=== PATIENT | female | born 1980 | race Caucasian/White ===

== ENCOUNTER 2016-08-24 11:16 | Emergency (ER) | payer OTHER ==
[~2016-08-24] VITALS: Ht 172.7 cm; Wt 104.3 kg
--- NOTE | 2016-08-24 12:24 | RAD ---
Indication cough. Congestion. Shortness of breath. PA and lateral views of the chest were obtained. No prior imaging of the chest is available. The heart and pulmonary vessels appear normal. The lungs are clear. There is no pleural fluid or pneumothorax. Bony structures appear unremarkable. IMPRESSION: No acute or focal process seen in the chest
[2016-08-24 12:50] LABS: BASO % 0 % (0-3); EOS # 0.1 x10^3/uL (0.0-0.7); EOS % 2 % (0-3); HEMATOCRIT 41.1 % (36.0-47.0); HEMOGLOBIN 14.2 g/dL (12.0-15.5); LYMPH # 0.6 x10^3/uL (1.0-4.8); LYMPH % 9 % (24-48); MEAN CORPUSCULAR HEMOGLOBIN 31 pg (25-35); MEAN CORPUSCULAR HGB CONC 35 g/dL (31-37); MEAN CORPUSCULAR VOLUME 89 fL (79-100); MONO # 0.2 x10^3/uL (0.0-1.1); MONO % 4 % (0-9); NEUT # 5.4 x10^3uL (1.8-7.7); NEUT % 84 % (31-73); PLATELET COUNT 177 x10^3/uL (140-400); RED BLOOD COUNT 4.62 x10^6/uL (3.50-5.40); RED CELL DISTRIBUTION WIDTH 13.3 % (11.5-14.5); WHITE BLOOD COUNT 6.4 x10^3/uL (4.0-11.0)
[2016-08-24 12:53] LABS: CALCIUM 8.6 mg/dL (8.5-10.1); CREATININE 0.9 mg/dL (0.6-1.0); GFR 70.8; POTASSIUM 4.1 mmol/L (3.5-5.1)
--- NOTE | 2016-08-24 13:03 | PHYS DOC ---
Past History Past Medical History: No Pertinent History Past Surgical History: Tonsillectomy, Other Alcohol Use: None Drug Use: None Adult General Chief Complaint Chief Complaint: SHORTNESS OF BREATH HPI HPI This 35-year-old lady presents with a history of cough and shortness of breath. He had a sinus procedure performed over weeks ago and had a severe sinus infection for which she was on Augmentin. About 6 days ago she called her ear nose and throat doctor because she wasn't getting much better and was having this cough and was told to go to the urgent care or ER. She went to the urgent care center negative chest x-ray and said she had pneumonia and change her to Levaquin. She presents now because she continues to have the cough that she states she had a fever yesterday. She presents now for evaluation Review of Systems Review of Systems ConstitutionalShe states she had a fever yesterday [] Eyes: Denies change in visual acuity, redness, or eye pain [] HENT: Denies or sore throat see history of present illness she's had a recent sinus infection Respiratory: She has had a persistent cough and dyspnea Cardiovascular: No additional information not addressed in HPI [] GI: Denies abdominal pain, nausea, vomiting, bloody stools or diarrhea [] : Denies dysuria or hematuria [] Musculoskeletal: Denies back pain or joint pain [] Integument: Denies rash or skin lesions [] Neurologic: Denies headache, focal weakness or sensory changes [] Endocrine: Denies polyuria or polydipsia [] Allergies Allergies Allergies Coded Allergies Type Severity Reaction Last Updated Verified Penicillins Allergy Unknown 08/24/16 Yes Physical Exam Physical Exam Constitutional: Well developed, well nourished, no acute distress, non-toxic appearance. [] HENT: Normocephalic, atraumatic, bilateral external ears normal, oropharynx moist, no oral exudates, nose normal. [] Eyes: PERRLA, EOMI, conjunctiva normal, no discharge. [] Neck: Normal range of motion, no tenderness, supple, no stridor. [] Cardiovascular:Heart rate regular rhythm, no murmur [] Lungs & Thorax: Bilateral breath sounds clear to auscultation [] Abdomen: Bowel sounds normal, soft, no tenderness, no masses, no pulsatile masses. [] Skin: Warm, dry, no erythema, no rash. [] Back: No tenderness, no CVA tenderness. [] Extremities: No tenderness, no cyanosis, no clubbing, ROM intact, no edema. [] Neurologic: Alert and oriented X 3, normal motor function, normal sensory function, no focal deficits noted. [] Psychologic: Affect normal, judgement normal, mood normal. [] Current Patient Data Vital Signs Vital Signs Date Time Temp Pulse Resp B/P (MAP) Pulse Ox O2 Delivery O2 Flow Rate FiO2 08/24/16 11:35 98.3 93 18 97 Room Air Lab Results Laboratory Tests Test 08/24/16 12:33 White Blood Count 6.4 x10^3/uL (4.0-11.0) Red Blood Count 4.62 x10^6/uL (3.50-5.40) Hemoglobin 14.2 g/dL (12.0-15.5) Hematocrit 41.1 % (36.0-47.0) Mean Corpuscular Volume 89 fL (79-100) Mean Corpuscular Hemoglobin 31 pg (25-35) Mean Corpuscular Hemoglobin Concent 35 g/dL (31-37) Red Cell Distribution Width 13.3 % (11.5-14.5) Platelet Count 177 x10^3/uL (140-400) Neutrophils (%) (Auto) 84 % (31-73) H Lymphocytes (%) (Auto) 9 % (24-48) L Monocytes (%) (Auto) 4 % (0-9) Eosinophils (%) (Auto) 2 % (0-3) Basophils (%) (Auto) 0 % (0-3) Neutrophils # (Auto) 5.4 x10^3uL (1.8-7.7) Lymphocytes # (Auto) 0.6 x10^3/uL (1.0-4.8) L Monocytes # (Auto) 0.2 x10^3/uL (0.0-1.1) Eosinophils # (Auto) 0.1 x10^3/uL (0.0-0.7) Basophils # (Auto) 0.0 x10^3/uL (0.0-0.2) EKG EKG [] Radiology/Procedures Radiology/Procedures Chest x-ray is negative for any infiltrates [] All laboratory values were reviewed and are totally normal Impressions: Bronchitis Course & Med Decision Making Course & Med Decision Making Pertinent Labs and Imaging studies reviewed. (See chart for details) The patient was instructed to continue on her present medications and a prescription for nebulized albuterol was given to the patient [] Dragon Disclaimer Dragon Disclaimer This chart was dictated in whole or in part using Voice Recognition software in a busy, high-work load, and often noisy Emergency Department environment. It may contain unintended and wholly unrecognized errors or omissions. Departure Departure: Referrals: DONTAE WHEATLEY DO (PCP) HOLLI ROSS MD August 24, 2016 13:03
[2016-08-24] MEDS ORDERED: ALBU2.5V14 NEB (13:11)
[2016-08-24 13:18] VITALS: BP 120/88
== END 2016-08-24 13:19 | disposition home or self-care (01) ==
LOC: ER 11:16
DX: J40 Bronchitis, not specified as acute or chronic (principal); Z88.0 Allergy status to penicillin
CPT/HCPCS: 36415; 71020; 80048; 85027; 99285-25

== ENCOUNTER 2020-03-01 16:22 | Emergency (ER) | payer OTHER ==
[~2020-03-01] VITALS: Ht 172.7 cm; Wt 109.0 kg
[~2020-03-01 16:22] MED LIST: ALBU2.5V14 NEB
[2020-03-01 16:25] VITALS: BP 137/78
[2020-03-01] MEDS ORDERED: HYDROcodone/APAP 5/325MG 1 TAB TABLET PO ONE (16:45)
[2020-03-01] MEDS ORDERED: IBUPROFEN 600 MG TABLET. PO ONE (16:45)
[2020-03-01] MEDS ORDERED: HYDR-3165 PO (17:07)
--- NOTE | 2020-03-01 17:07 | PHYS DOC ---
Past History Past Medical History: Other Additional Past Medical Histor: allergies Past Surgical History: No Surgical History Alcohol Use: None Drug Use: None General Adult EDM: Chief Complaint: ANKLE PROBLEM HPI: HPI: History obtained from patient. Patient is a 39-year-old female presents with chief complaint of right ankle pain status post injury. States yesterday evening around 10 PM she was stepping down off of the sidewalk. She did not notice the curb and describes an inversion ankle injury. She notes pain to the distal aspect of her right fibula. She also notes pain over the right lateral malleolus. Notes mild swelling. States it is somewhat difficult to ambulate due to pain. Has tried ibuprofen and Tylenol with some relief. Denies knee pain. Did not fall or strike her head. No other complaints. Review of Systems: Review of Systems: Constitutional: Denies fever or chills Eyes: Denies change in visual acuity HENT: Denies nasal congestion or sore throat Respiratory: Denies cough or shortness of breath Cardiovascular: Denies chest pain or edema GI: Denies abdominal pain, nausea, vomiting, bloody stools or diarrhea : Denies dysuria Musculoskeletal: Positive for ankle pain Integument: Denies rash Neurologic: Denies headache, focal weakness or sensory changes Endocrine: Denies polyuria or polydipsia Lymphatic: Denies swollen glands Psychiatric: Denies depression or anxiety Current Medications: Current Meds: Current Medications Medications (Trade) Dose Ordered Sig/Heriberto Start Time Stop Time Status Last Admin Dose Admin Acetaminophen/ Hydrocodone Bitart (Lortab 5/325) 1 tab 1X ONCE 03/01/20 16:45 03/01/20 16:46 DC 03/01/20 16:54 1 TAB Ibuprofen (Motrin) 600 mg 1X ONCE 03/01/20 16:45 03/01/20 16:46 DC 03/01/20 16:54 600 MG Allergies: Allergies: Allergies Coded Allergies Type Severity Reaction Last Updated Verified Penicillins Allergy Unknown 03/01/20 Yes Physical Exam: PE: Constitutional: Well developed, well nourished, no acute distress, non-toxic appearance. [] HENT: Normocephalic, atraumatic, bilateral external ears normal, oropharynx moist, no oral exudates, nose normal. [] Eyes: PERRLA, EOMI, conjunctiva normal, no discharge. [] Neck: Normal range of motion, no tenderness, supple, no stridor. [] Cardiovascular:Heart rate regular rhythm, no murmur [] Lungs & Thorax: Bilateral breath sounds clear to auscultation [] Abdomen: soft, no tenderness, no masses, no pulsatile masses. [] Skin: Warm, dry, no erythema, no rash. [] Back: No tenderness, no CVA tenderness. [] Extremities: R KNEE/ANKLE/FOOT: Focal tenderness to palpation at the lateral malleolus. Tissue compartments are soft. Distal pulses are 2+. Knee extension is intact. Plantar flexion is intact. Proximal fibula is not tender to palpation. Medial malleolus is not tender to palpation. Lateral malleolus is not tender to palpation. 5th metatarsal head is not tender to palpation. There is no obvious deformity. Passive ROM is reduced due to pain. Active ROM is reduced due to pain. Neurologic: Alert and oriented X 3, normal motor function, normal sensory function, no focal deficits noted. [] Psychologic: Affect normal, judgement normal, mood normal. [] Current Patient Data: Vital Signs: Vital Signs Date Time Temp Pulse Resp B/P (MAP) Pulse Ox O2 Delivery O2 Flow Rate FiO2 03/01/20 16:54 16 03/01/20 16:25 98.1 82 137/78 (97) 96 Nasal Cannula EKG: EKG: [] Radiology/Procedures: Radiology/Procedures: [address] [address] IMAGING REPORT Signed PATIENT: CLEMENCIA DARLING LACCOUNT: [id number] : 1980 LOCATION: ER AGE: 39 SEX: F EXAM STATUS: REG ER ORD. PHYSICIAN: TONIA NEWTON DO REASON: R ankle pain lateral aspect PROCEDURE: ANKLE RIGHT 3V TIBIA FIBULA RIGHT, ANKLE RIGHT 3V Clinical Indication: Reason: R ankle pain lateral aspect Comparison: None. Findings: There is no soft tissue swelling of the ankle. Ankle mortise is intact. There is no acute fracture. The mineralization is normal. Moderate inferior calcaneal bone spur. There is no acute fracture of the tibia or fibula. There is no obvious deformity of the knee. No soft tissue swelling of the calf is seen. IMPRESSION: No acute fracture. Electronically signed by: Reyes Mcnally MD (03/01/2020 5:03 PM) [facility] DICTATED AND SIGNED BY: REYES MCNALLY MD DATE: 03/01/201702 CC: BEVERLY PERES MD; TONIA NEWTON DO ~MTH0 0 [] Heart Score: Risk Factors: Risk Factors: DM, Current or recent (<one month) smoker, HTN, HLP, family h istory of CAD, obesity. Risk Scores: Score 0 - 3: 2.5% MACE over next 6 weeks - Discharge Home Score 4 - 6: 20.3% MACE over next 6 weeks - Admit for Clinical Observation Score 7 - 10: 72.7% MACE over next 6 weeks - Early Invasive Strategies Course & Med Decision Making: Course & Med Decision Making Pertinent Labs and Imaging studies reviewed. (See chart for details) [] Patient is a 39-year-old female presents with right ankle pain status post inversion injury. Exam noted above. Plain film imaging without obvious acute osseous abnormality. Given her discomfort Aircast will be placed. She was encouraged to use [id number] medications for relief. Instructed to follow-up with her primary care physician in the next 2 to 3 days. Stable for discharge home. [place] Disclaimer: [place] Disclaimer: This electronic medical record was generated, in whole or in part, using a voice recognition dictation system. Departure Departure: Impression: Primary Impression: Ankle injury Qualified Codes: S99.911A - Unspecified injury of right ankle, initial encounter Disposition: 01 DC HOME SELF CARE/HOMELESS Condition: STABLE Referrals: BEVERLY PERES MD (PCP) Patient Instructions: Ankle Sprain Additional Instructions: Please follow-up with your primary care physician next week Scripts Hydrocodone Bit/Acetaminophen (NORCO 5-325 TABLET) 1 Each Tablet 1-2 TAB PO Q4-6HRS for pain, #8 TAB Prov: TONIA NEWTON DO 03/01/20 TONIA NEWTON DO Mar 01, 2020 17:07
== END 2020-03-01 17:22 | disposition home or self-care (01) ==
LOC: ER 16:22
DX: S99.911A Unspecified injury of right ankle, initial encounter (principal); Z88.0 Allergy status to penicillin; X50.9XXA Other and unspecified overexertion or strenuous movements or postures, initial encounter; Y93.89 Activity, other specified; Y92.89 Other specified places as the place of occurrence of the external cause; Y99.8 Other external cause status
CPT/HCPCS: 73590; 73610; 99284